=== PATIENT | male | born 1985 | race Caucasian/White ===

== ENCOUNTER 2022-04-30 13:25 | Emergency (ER) | payer SELFPAY ==
[2022-04-30 13:37] VITALS: BP 125/69; PULSE 81; TEMP 97.3; BMI 34.9
[2022-04-30] MEDS ORDERED: DIPHTH,PERTUSS(ACELL),TET 0.5 ML DISP.SYRIN IM ONE ×2 (13:49→13:58)
[2022-04-30] MEDS ORDERED: LIDOCAINE HCL 2% (50ML VIAL) INF ONE (13:49)
[2022-04-30] MEDS ORDERED: LIDOCAINE HCL 2% (20ML MULTI-DOSE VIAL) ONE (13:57)
== END 2022-04-30 15:24 | disposition home or self-care (01) ==
LOC: FER 13:25
PROC: 0HQFXZZ Repair Right Hand Skin, External Approach (ICD-10-PCS; principal; 2022-04-30)
PROC: 3E0234Z Introduction of Serum, Toxoid and Vaccine into Muscle, Percutaneous Approach (ICD-10-PCS; 2022-04-30)
DX: S61.411A Laceration without foreign body of right hand, initial encounter (principal); W26.0XXA Contact with knife, initial encounter
CPT/HCPCS: 90715; 99283-25